=== PATIENT | male | born 2000 | race Caucasian/White ===

== ENCOUNTER 2018-07-22 13:32 | Emergency (ER) | payer MEDICAID ==
[~2018-07-22] VITALS: Ht 185.4 cm; Wt 77.1 kg
[2018-07-22 13:38] VITALS: BP_SYST 136
[2018-07-22 14:01] LABS: BILIRUBIN,URINE NEGATIVE (NEGATIVE); BLOOD, URINE NEGATIVE (NEGATIVE); CLARITY/URINE CLEAR (CLEAR); COLOR,URINE YELLOW (YELLOW); GLUCOSE,URINE NEGATIVE (NEGATIVE); KETONES,URINE 2+ (NEGATIVE); LEUKOCYTE ESTERASE ,URINE NEGATIVE (NEGATIVE); NITRITE, URINE NEGATIVE (NEGATIVE); PH,URINE 5.5 (5.0-8.0); PROTEIN URINE TRACE (NEGATIVE)
[2018-07-22 14:16] LABS: BACTERIA,URINE FEW /HPF (None Seen); RBC,URINE 0-3 /HPF (0-3); WBC,URINE 0-3 /HPF (0-3)
[2018-07-22 14:17] LABS: MUCUS,URINE None Seen /LPF (None Seen); YEAST,URINE None Seen /HPF (None Seen)
[2018-07-22 15:01] LABS: BASOPHILS % (AUTO) 0.4 % (0.0-2.0); HEMATOCRIT 50.7 % (36-54); LYMPHOCYTES # (AUTO) 0.4 K/uL (1.0-5.5); MEAN CORPUSCULAR HEMOGLOBIN 30 pg (27-31); MEAN CORPUSCULAR HGB CONC 32 % (32-36)
[2018-07-22 15:09] LABS: EOSINOPHILS % (AUTO) 0.1 % (0.0-4.0); HEMOGLOBIN 16.4 g/dL (14.0-18.0); MEAN CORPUSCULAR VOLUME 93 fL (79.0-98.0); MONOCYTES # (AUTO) 0.4 K/uL (0.0-1.0); NEUTROPHILS # (AUTO) 8.1 K/uL (1.8-7.7); NEUTROPHILS % (AUTO) 89.5 % (40.0-70.0); RED BLOOD CELL COUNT(AUTO) 5.44 MIL/uL (4.2-6.2); RED CELL DISTRIBUTION WIDTH 12.2 % (9.0-15.0); WHITE BLOOD COUNT (AUTO) 8.9 K/uL (4.5-11.0)
[2018-07-22 15:10] LABS: PLATELET COUNT (AUTO) 77 K/uL (130-430)
[2018-07-22 15:21] LABS: CALCIUM 9.1 mg/dL (8.4-11.0); CREATININE 0.79 mg/dL (0.55-1.30); POTASSIUM 3.7 mmol/L (3.5-5.1)
[2018-07-22 15:25] LABS: ALBUMIN 4.6 g/dL (3.4-4.8); TOTAL BILIRUBIN 1.8 mg/dL (0.0-1.0)
[2018-07-22] MEDS ORDERED: ONDANSETRON HCL 4 MG/2 ML VIAL IM ONE (15:30)
[2018-07-22 17:05] VITALS: BP_SYST 136
== END 2018-07-22 17:05 | disposition home or self-care (01) ==
LOC: SED 13:32
DX: K52.9 Noninfective gastroenteritis and colitis, unspecified (principal); R03.0 Elevated blood-pressure reading, without diagnosis of hypertension; Z88.1 Allergy status to other antibiotic agents
CPT/HCPCS: 36415; 80053; 81000; 83605; 83690; 85025; 87040; 96372; 99283; J2405

== ENCOUNTER 2019-02-07 20:40 | Emergency (ER) | payer MEDICAID ==
[~2019-02-07] VITALS: Ht 182.9 cm; Wt 81.6 kg
[2019-02-07 20:45] VITALS: BP_SYST 130
--- NOTE | 2019-02-07 20:45 | NUR ---
Pt placed to ER bed 03. Pt c/o bilat ear pain since yesterday. Pt states left ear hurts worse. Denies drainage. Pt took Tylenol x 1 hour, now ears are "popping" with some pain relief.
--- NOTE | 2019-02-07 21:00 | NUR ---
Dr. Samson at bedside.
[2019-02-07 21:30] VITALS: BP_SYST 197
--- NOTE | 2019-02-07 21:30 | NUR ---
Patient given written and verbal discharge instructions and verbalizes understanding. ER MD discussed with patient the results and treatment provided. Patient in stable condition. ID arm band removed. Rx of Motrin, Cortisporin given. Patient educated on pain management and to follow up with PMD. Pain Scale 2/10. Opportunity for questions provided and answered. Medication side effect fact sheet provided.
== END 2019-02-07 21:30 | disposition home or self-care (01) ==
LOC: SED 20:40
DX: H92.02 Otalgia, left ear (principal); Z88.1 Allergy status to other antibiotic agents
CPT/HCPCS: 99283